=== PATIENT | female | born 1995 | race Caucasian/White ===

== ENCOUNTER → 2023-06-07 19:00 | Outpatient (BNV) | payer BC, SELFPAY | PROVIDERS: PCP Internal Medicine; Visit Provider Psychiatry & Neurology Neurology | DX: R06.83 Snoring (principal) | CPT/HCPCS: 95810 ==

== ENCOUNTER → 2023-06-07 20:30 | Outpatient (REF) | payer BC, SELFPAY | LOC: HO.SL 20:30 | PROVIDERS: PCP Internal Medicine; Visit Provider Psychiatry & Neurology Neurology | DX: G47.10 Hypersomnia, unspecified (principal) | CPT/HCPCS: 95805; 95810 ==

== ENCOUNTER 2023-06-08 19:45 | Outpatient (REF) | payer BC, SELFPAY ==
[2023-06-08 20:03] LABS: UPreg QC Valid YES; Urine Pregnancy NEGATIVE (NEGATIVE)
[2023-06-08 20:13] LABS: Amphetamine Screen Urine Not Detected (Not Detect); Barbiturates, Urine Not Detected (Not Detect); Benzodiazepines Screen Urine Not Detected (Not Detect); Buprenorphine Scr Not Detected (Not Detect); Cannabinoid Screen Urine POSITIVE (Not Detect); Cocaine Screen Urine Not Detected (Not Detect); Fentanyl, urine Not Detected (Not Detect); Methadone Screen, Urine Not Detected (Not Detect); Opiate Screen Urine Not Detected (Not Detect); Oxycodone Screen Urine Not Detected (Not Detect); Phencyclidine Screen Urine Not Detected (Not Detect)
== END 2023-06-08 19:46 | disposition home or self-care (01) ==
LOC: HO.LNP 19:45
PROVIDERS: Psychiatry & Neurology Neurology
DX: Z13.89 Encounter for screening for other disorder (principal)
CPT/HCPCS: 80307; 81025